=== PATIENT | female | born 1945 | race Caucasian/White ===

== ENCOUNTER 2016-05-17 05:28 | Inpatient (IN) | payer MEDICARE, OTHER ==
[~2016-05-17] VITALS: Ht 157.5 cm; Wt 43.6 kg
[2016-05-17] MEDS ORDERED: HYDR-309 PO (05:39)
[2016-05-17] MEDS ORDERED: CLON0.5T PO (05:39)
[2016-05-17] MEDS ORDERED: LORA0.5T83 PO (05:39)
[2016-05-17 05:52] LABS: GLUCOSE,POINT OF CARE 116 MG/DL (70-110)
[2016-05-17 06:16] LABS: BASOPHILS # (AUTO) 0.04 K/uL (0.00-0.20); BASOPHILS % (AUTO) 0.9 % (0.0-2.0); EOSINOPHILS # (AUTO) 0.24 K/uL (0.00-0.70); EOSINOPHILS % (AUTO) 5.19 % (1.0-6.0); HEMATOCRIT 34.8 % (36-46); HEMOGLOBIN 11.8 g/dL (12.0-16.0); LYMPHOCYTES # (AUTO) 1.8 K/uL (1.0-4.8); LYMPHOCYTES % (AUTO) 39.6 % (22.0-44.0); MEAN CORPUSCULAR HEMOGLOBIN 31.3 pg (26.0-34.0); MEAN CORPUSCULAR HGB CONC 33.9 G/dL (31.0-37.0); MEAN CORPUSCULAR VOLUME 92 fL (80-100); MONOCYTES # (AUTO) 0.4 K/uL (0.1-1.0); MONOCYTES % (AUTO) 8.6 % (2.0-9.0); NEUTROPHILS # (AUTO) 2.1 K/uL (1.8-7.7); NEUTROPHILS % (AUTO) 45.7 % (40.0-70.0); PLATELET COUNT (AUTO) 203 K/uL (150-450); RED BLOOD CELL COUNT(AUTO) 3.77 MIL/uL (4.00-5.20); RED CELL DISTRIBUTION WIDTH 14.6 % (11.5-14.5); WHITE BLOOD COUNT (AUTO) 4.6 K/uL (4.5-11.0)
[2016-05-17] MEDS ORDERED: POLY90PO MC (06:24)
[2016-05-17] MEDS ORDERED: INSU100C14 SQ (06:24)
[2016-05-17] MEDS ORDERED: RAME8TAB17 PO (06:24)
[2016-05-17] MEDS ORDERED: MEMA1CAP4 PO (06:24)
[2016-05-17] MEDS ORDERED: BIFI4CAP PO (06:24)
[2016-05-17] MEDS ORDERED: HYDR50 PO (06:24)
[2016-05-17] MEDS ORDERED: ASPI81 PO (06:24)
[2016-05-17] MEDS ORDERED: AMLO-512 PO (06:24)
[2016-05-17] MEDS ORDERED: CARV25 PO (06:24)
[2016-05-17] MEDS ORDERED: FOLI1 PO (06:24)
[2016-05-17] MEDS ORDERED: LUBI24CA2 PO (06:24)
[2016-05-17] MEDS ORDERED: INSLAN SQ (06:24)
[2016-05-17] MEDS ORDERED: FOLI0.8T2 PO (06:24)
[2016-05-17] MEDS ORDERED: [UNRECOGNIZED DRUG - CODE] SQ (06:24)
[2016-05-17] MEDS ORDERED: SEVE800T PO (06:24)
[2016-05-17 06:25] LABS: ANION GAP 8 mmol/L (8-16); CALCIUM, TOTAL 8.6 mg/dL (8.8-10.5); CARBON DIOXIDE 30 mmol/L (22-29); CHLORIDE 99 mmol/L (98-107); CREATININE 5.67 mg/dL (0.60-1.30); GLOMERULAR FILTR. RATE CALC 7 mL/min (>60); POTASSIUM 3.3 mmol/L (3.5-5.1); SODIUM SERUM 137 mmol/L (136-145); UREA NITROGEN, BLOOD 30 mg/dL (7-18)
[2016-05-17] MEDS ORDERED: IPRA3AMP4 NEB (06:26)
[2016-05-17 06:29] LABS: PROTHROMBIN TIME 10.7 SEC (9.4-11.6)
[2016-05-17] MEDS ORDERED: SODIUM CHLORIDE 0.9% 1,000 ML IV ONE ×2 (06:30)
[2016-05-17] MEDS ORDERED: ASPIRIN 81 MG CHEWABLE TABLET PO ONE ×2 (06:30)
[2016-05-17 06:31] LABS: ALANINE AMINOTRANSFERASE 19 U/L (12-78); ALBUMIN 2.7 g/dL (3.4-5.0); ASPARTATE AMINOTRANSFERASE 14 U/L (15-37); BILIRUBIN,TOTAL 0.2 mg/dL (0.1-1.0); CREATINE KINASE, TOTAL 19 U/L (26-192); TOTAL PROTEIN, SERUM 6.2 g/dL (6.4-8.2)
[2016-05-17 06:52] LABS: B-TYPE NATRIURETIC PEPTIDE 101 pg/mL (0-100)
[2016-05-17] MEDS ORDERED: ACETAMINOPHEN 1000 MG/ISO-OSM 100 ML IV ONE (07:00)
[2016-05-17] MEDS ORDERED: 0.9% SODIUM CHLORIDE 10 ML SYRINGE IVP PRN (09:15)
[2016-05-17] MEDS ORDERED: ONDANSETRON HCL 4 MG/2 ML VIAL IVP PRN ×2 (09:15→10:00)
[2016-05-17] MEDS ORDERED: ACETAMINOPHEN 325 MG TABLET PO PRN ×2 (09:15→10:00)
[2016-05-17] MEDS ORDERED: BISACODYL 10 MG RECTAL RECTAL SUPPOSITORY PR PRN (10:00)
[2016-05-17] MEDS ORDERED: MAGNESIUM HYDROXIDE SUSPENSION 30 ML UDCUP PO PRN (10:00)
[2016-05-17] MEDS ORDERED: ZOLPIDEM TARTRATE 5 MG TABLET PO PRN (10:00)
[2016-05-17] MEDS ORDERED: OxyCODONE HCL/ACETAMINOPHEN 5-325 MG TABLET PO PRN (10:00)
[2016-05-17] MEDS ORDERED: ALBUMIN HUMAN 25%-25GM/100ML 100 ML IV PRN (10:30)
[2016-05-17 11:46] VITALS: BP 127/69
[2016-05-17 12:36] LABS: PHOSPHORUS 4.4 mg/dL (2.5-4.9)
[2016-05-17] MEDS: HEPARIN SODIUM,PORCINE 5,000 UNITS/ML VIAL SQ SCH (16:00)
[2016-05-17 16:10] VITALS: BP 112/53
[2016-05-17] MEDS ORDERED: ALBUMIN HUMAN 25%-12.5GM/50ML IV BOTTLE IV ONE (18:59)
[2016-05-17 19:29] VITALS: BP 120/48
[2016-05-17 23:12] VITALS: BP 147/64
[2016-05-18 04:43] VITALS: BP 145/54
[2016-05-18 06:51] LABS: BASOPHILS % (AUTO) 0.7 % (0.0-2.0); EOSINOPHILS % (AUTO) 3.5 % (1.0-6.0); HEMATOCRIT 36.4 % (36-46); HEMOGLOBIN 11.7 g/dL (12.0-16.0); LYMPHOCYTES # (AUTO) 1.2 K/uL (1.0-4.8); LYMPHOCYTES % (AUTO) 19.1 % (22.0-44.0); MEAN CORPUSCULAR HEMOGLOBIN 30.5 pg (26.0-34.0); MEAN CORPUSCULAR HGB CONC 32.2 G/dL (31.0-37.0); MEAN CORPUSCULAR VOLUME 95 fL (80-100); MONOCYTES # (AUTO) 0.4 K/uL (0.1-1.0); MONOCYTES % (AUTO) 6.9 % (2.0-9.0); NEUTROPHILS # (AUTO) 4.5 K/uL (1.8-7.7); NEUTROPHILS % (AUTO) 69.8 % (40.0-70.0); PLATELET COUNT (AUTO) 162 K/uL (150-450); RED BLOOD CELL COUNT(AUTO) 3.85 MIL/uL (4.00-5.20); RED CELL DISTRIBUTION WIDTH 14.3 % (11.5-14.5); WHITE BLOOD COUNT (AUTO) 6.4 K/uL (4.5-11.0)
[2016-05-18 07:23] VITALS: BP 133/57
[2016-05-18 07:28] LABS: ALBUMIN 2.8 g/dL (3.4-5.0); BILIRUBIN,TOTAL 0.2 mg/dL (0.1-1.0); CALCIUM, TOTAL 8.2 mg/dL (8.8-10.5); CREATININE 2.85 mg/dL (0.60-1.30); MAGNESIUM 1.7 mg/dL (1.80-2.40); POTASSIUM 3.8 mmol/L (3.5-5.1); TOTAL PROTEIN, SERUM 5.9 g/dL (6.4-8.2)
[2016-05-18] MEDS ORDERED: VITAMIN B COMP/VIT C/FOLIC ACID CAPSULE PO SCH (08:30)
[2016-05-18] MEDS ORDERED: PANTOPRAZOLE SODIUM 40 MG DR TABLET PO SCH (09:00)
[2016-05-18] MEDS: HEPARIN SODIUM,PORCINE 5,000 UNITS/ML VIAL SQ SCH ×3 (09:15→16:00)
[2016-05-18 11:35] VITALS: BP 140/60
[2016-05-18 16:24] VITALS: BP 138/65
[2016-05-18 18:00] VITALS: BP 135/60
== END 2016-05-18 19:00 | DRG 314 ==
LOC: EMS 05:30 → 5N 10:55
PROVIDERS: ADMIT Hospitalist; ATTEND Hospitalist
PROC: 5A1D00Z (ICD-10-PCS; principal; 2016-05-17)
DX: I95.9 Hypotension, unspecified (principal); E43 Unspecified severe protein-calorie malnutrition; N18.6 End stage renal disease; Z68.1 Body mass index [BMI] 19.9 or less, adult; I12.0 Hypertensive chronic kidney disease with stage 5 chronic kidney disease or end stage renal disease; S22.39XA Fracture of one rib, unspecified side, initial encounter for closed fracture; E11.22 Type 2 diabetes mellitus with diabetic chronic kidney disease; F25.9 Schizoaffective disorder, unspecified; R00.1 Bradycardia, unspecified; E87.6 Hypokalemia; E78.5 Hyperlipidemia, unspecified; J44.9 Chronic obstructive pulmonary disease, unspecified; F03.90 Unspecified dementia, unspecified severity, without behavioral disturbance, psychotic disturbance, mood disturbance, and anxiety; G89.4 Chronic pain syndrome; D63.8 Anemia in other chronic diseases classified elsewhere; M47.9 Spondylosis, unspecified; K52.9 Noninfective gastroenteritis and colitis, unspecified; E11.42 Type 2 diabetes mellitus with diabetic polyneuropathy; I25.10 Atherosclerotic heart disease of native coronary artery without angina pectoris; I25.9 Chronic ischemic heart disease, unspecified; E11.51 Type 2 diabetes mellitus with diabetic peripheral angiopathy without gangrene; I70.0 Atherosclerosis of aorta; X58.XXXA Exposure to other specified factors, initial encounter; Z99.2 Dependence on renal dialysis; Z95.5 Presence of coronary angioplasty implant and graft; Z98.890 Other specified postprocedural states; Z90.49 Acquired absence of other specified parts of digestive tract; Z89.431 Acquired absence of right foot; Z79.899 Other long term (current) drug therapy; Z88.6 Allergy status to analgesic agent; Z88.5 Allergy status to narcotic agent; Z88.8 Allergy status to other drugs, medicaments and biological substances; Z79.82 Long term (current) use of aspirin; Z79.01 Long term (current) use of anticoagulants; Z79.891 Long term (current) use of opiate analgesic; Z79.4 Long term (current) use of insulin; Z87.81 Personal history of (healed) traumatic fracture; Z86.73 Personal history of transient ischemic attack (TIA), and cerebral infarction without residual deficits; Y93.89 Activity, other specified; Y92.89 Other specified places as the place of occurrence of the external cause; Y99.8 Other external cause status
CPT/HCPCS: 82962; 83735; 84100; 87081; 87340; 90935; 93005; 93306; 96361; 96374; 99291; J0131; J1644; J7030; P9047